=== PATIENT | female | born 1955 | race Caucasian/White ===

== ENCOUNTER 2017-12-02 11:18 | Day surgery (SDC) | payer OTHER ==
[2017-12-02] MEDS ORDERED: FENTAnyl 50 MCG/ML VIAL IV ×2 (13:00)
[2017-12-02] MEDS ORDERED: LABETALOL HCL 20MG INJ IV (13:00)
[2017-12-02] MEDS ORDERED: MIDAZOLAM 1 MG/ML 2 ML INJ IV (13:00)
[2017-12-02] MEDS ORDERED: EPHEDrine SULFATE 50 MG/5 ML SYG IV (13:00)
[2017-12-02] MEDS ORDERED: MEPERIDINE 25 MG INJ IV (13:00)
[2017-12-02] MEDS ORDERED: hydrALAzine 20 MG INJ IV (13:00)
[2017-12-02] MEDS ORDERED: DIPHENHYDRAMINE 50 MG INJ IV (13:00)
[2017-12-02] MEDS ORDERED: ALBUTEROL 0.083% (NEB) 2.5 MG/3 ML AMP HHN (13:00)
[2017-12-02] MEDS ORDERED: OXYCODONE/ACETAMINOPHEN (5/325) TAB PO ×2 (13:00)
[2017-12-02] MEDS ORDERED: METOCLOPRAMIDE 10 MG INJ IV (13:00)
[2017-12-02] MEDS ORDERED: PROPOFOL 100 ML (13:02)
[2017-12-02] MEDS ORDERED: ROCURONIUM 50 MG INJ (13:03)
[2017-12-02] MEDS ORDERED: MIDAZOLAM 1 MG/ML 2 ML INJ (13:06)
[2017-12-02] MEDS: LIDOCAINE 1%/EPI 30 ML INJ (13:31)
[2017-12-02] MEDS: OXYMETAZOLINE 0.05% 15 ML NAS SPRAY NASAL (13:32)
[2017-12-02] MEDS ORDERED: ONDANSETRON 4 MG INJ (13:33)
[2017-12-02] MEDS ORDERED: DEXAMETHASONE 4 MG/ML 1 ML INJ ×2 (13:33→13:37)
[2017-12-02] MEDS ORDERED: SUGAMMADEX SODIUM 200 MG/2 ML VIAL IV (14:05)
[2017-12-02] MEDS ORDERED: HYDROmorphONE (0.2 MG/ML) 10ML SYG IV (14:24)
[2017-12-02] MEDS: FENTAnyl 50 MCG/ML VIAL IV (14:32)
[2017-12-02] MEDS: ONDANSETRON 4 MG INJ IV (14:57)
== END 2017-12-02 16:05 | disposition home or self-care (01) ==
LOC: SDS 11:18
DX: J32.9 Chronic sinusitis, unspecified (principal); J45.909 Unspecified asthma, uncomplicated; I10 Essential (primary) hypertension; Z88.6 Allergy status to analgesic agent; Z88.8 Allergy status to other drugs, medicaments and biological substances
CPT/HCPCS: 31253; 88304

== ENCOUNTER 2018-06-02 09:57 | Day surgery (SDC) | payer OTHER ==
[2018-06-02] MEDS: LACTATED RINGER'S 1,000 ML IV (11:00)
[2018-06-02] MEDS ORDERED: ONDANSETRON 4 MG INJ IV (15:30)
[2018-06-02] MEDS ORDERED: LABETALOL HCL 20MG INJ IV (15:30)
[2018-06-02] MEDS ORDERED: DIPHENHYDRAMINE 50 MG INJ IV (15:30)
[2018-06-02] MEDS ORDERED: MEPERIDINE 25 MG INJ IV (15:30)
[2018-06-02] MEDS ORDERED: METOCLOPRAMIDE 10 MG INJ IV (15:30)
[2018-06-02] MEDS ORDERED: hydrALAzine 20 MG INJ IV (15:30)
[2018-06-02] MEDS ORDERED: FENTAnyl 50 MCG/ML VIAL ×2 (15:34→16:44)
[2018-06-02] MEDS ORDERED: MIDAZOLAM 1 MG/ML 2 ML INJ (15:34)
[2018-06-02] MEDS: LIDOCAINE 1%/EPI 30 ML INJ (16:10)
[2018-06-02] MEDS: OXYMETAZOLINE 0.05% 15 ML NAS SPRAY NASAL (16:11)
[2018-06-02] MEDS ORDERED: LIDOCAINE 2% (SDV) 5 ML INJ (16:50)
[2018-06-02] MEDS ORDERED: GLYCOPYRROLATE 0.4 MG INJ (16:50)
[2018-06-02] MEDS ORDERED: ONDANSETRON 4 MG INJ (16:50)
[2018-06-02] MEDS ORDERED: PROPOFOL 20 ML (16:50)
[2018-06-02] MEDS ORDERED: ROCURONIUM 50 MG INJ (16:50)
[2018-06-02] MEDS ORDERED: NEOSTIGMINE 3 MG/3 ML SYRINGE (16:50)
[2018-06-02] MEDS: FENTAnyl 50 MCG/ML VIAL IV (17:16)
[2018-06-02] MEDS ORDERED: HYDROCODONE/APAP (5/325) TAB PO (18:30)
[2018-06-02] MEDS: traMADol 50 MG TAB PO (18:40)
== END 2018-06-02 19:02 | disposition home or self-care (01) ==
LOC: SDS 09:57
DX: J32.9 Chronic sinusitis, unspecified (principal); J00 Acute nasopharyngitis [common cold]; I10 Essential (primary) hypertension; E78.5 Hyperlipidemia, unspecified; Z87.891 Personal history of nicotine dependence
CPT/HCPCS: 31090; 88304